=== PATIENT | male | born 1975 | race Caucasian/White ===

== ENCOUNTER 2022-03-14 13:18 | Emergency (ER) | payer MEDICARE, MEDICAID | END 2022-03-14 15:52 | disposition home or self-care (01) | LOC: ERS 13:18 | DX: M54.12 Radiculopathy, cervical region (principal); M62.838 Other muscle spasm | CPT/HCPCS: 99282 ==

== ENCOUNTER 2022-03-20 11:43 | Emergency (ER) | payer MEDICARE, MEDICAID ==
[2022-03-20] MEDS ORDERED: Ketorolac Tromethamine 30 MG/ML VIAL ONE (13:13)
[2022-03-20] MEDS ORDERED: Dexamethasone 10 MG/ML VIAL ONE (13:13)
== END 2022-03-20 13:45 | disposition home or self-care (01) ==
LOC: ERS 11:43
DX: M54.12 Radiculopathy, cervical region (principal); F17.210 Nicotine dependence, cigarettes, uncomplicated
CPT/HCPCS: 96372; 99283; J1100; J1885

== ENCOUNTER 2022-04-03 11:10 | Outpatient (CLI) | payer MEDICARE, MEDICAID | END 2022-04-03 11:11 | disposition home or self-care (01) | LOC: RAD-FRANK 11:10 | PROVIDERS: ATTEND Nurse Practitioner Family | DX: M47.22 Other spondylosis with radiculopathy, cervical region (principal); M48.52XA Collapsed vertebra, not elsewhere classified, cervical region, initial encounter for fracture; M77.8 Other enthesopathies, not elsewhere classified; R29.890 Loss of height; M43.8X2 Other specified deforming dorsopathies, cervical region | CPT/HCPCS: 72040 ==

== ENCOUNTER 2022-04-27 09:33 | Outpatient (CLI) | payer MEDICARE, MEDICAID | END 2022-04-27 09:34 | disposition home or self-care (01) | LOC: MRI 09:33 | PROVIDERS: ATTEND Nurse Practitioner Family | DX: M50.123 Cervical disc disorder at C6-C7 level with radiculopathy (principal); M47.814 Spondylosis without myelopathy or radiculopathy, thoracic region; M47.22 Other spondylosis with radiculopathy, cervical region; M25.78 Osteophyte, vertebrae; M50.121 Cervical disc disorder at C4-C5 level with radiculopathy; M48.02 Spinal stenosis, cervical region; Z91.89 Other specified personal risk factors, not elsewhere classified | CPT/HCPCS: 72141; 72156 ==